=== PATIENT | male | born 2000 | race Caucasian/White ===

== ENCOUNTER 2019-04-01 22:09 | Emergency (ER) | payer SELFPAY ==
--- NOTE | 2019-04-01 22:38 | ED ---
Upper Extremity Pain - HPI Summary HPI Summary: This pt is a 18 Y/O M presenting to [facility] with a CC of L shoulder pain that occurred at 2100 this date. The pt states that he was lifting when he felt the shoulder give out and drop. He states that he was seen by the consulting technical manager who was unable to relocate the shoulder. He states that he has some tingling and numbness in his L hands. He states that the shoulder is rated a 3 or 4 out of 10. He states that movement and palpation increase the pain. He denies any fever, headaches, SOB, and N/V. He states that he has no alleviating factors. He has no pertinent PMHx and states that he does not have a SHx of drinking, tobacco use, or use of any drugs. - History of Current Complaint Chief Complaint: EDShoulderCBrandon Stated Complaint: ARM PAIN PER EMS Time Seen by Provider: 04/01/19 22:24 Hx Obtained From: Patient Mechanism Of Injury: Other - states he was lifting when the shoulder "popped and dropped." Onset/Duration: Started Hours Ago - 2, Still Present Timing: Constant Severity Initially: Moderate Severity Currently: Mild - 3 Pain Location: Shoulder - L shoulder Aggravating Factor(s): Movement, Other - palpation Alleviating Factor(s): Nothing Associated Signs & Symptoms: Positive: Negative - headache, Numbness/Tingling - L finger. Negative: Fever, SOB, Nausea, Vomiting - Allergies/Home Medications Allergies/Adverse Reactions: Allergies Allergy/AdvReac Type Severity Reaction Status Date / Time No Known Allergies Allergy Verified 04/01/19 23:04 Home Medications: Home Medications NK [No Home Medications Reported] 04/01/19 [History Confirmed 04/01/19] PMH/Surg Hx/FS Hx/Imm Hx Previously Healthy: Yes Endocrine/Hematology History: Denies: Hx Diabetes Cardiovascular History: Denies: Hx Hypotension Respiratory History: Denies: Hx Asthma Sensory History: Reports: Hx Contacts or Glasses - perscription glasses, no contacts Opthamlomology History: Reports: Hx Contacts or Glasses - perscription glasses, no contacts - Cancer History Hx Chemotherapy: No Hx Radiation Therapy: No - Surgical History Surgical History: Yes Surgery Procedure, Year, and Place: Stye removed on L eyelid - Immunization History Immunizations Up to Date: Yes Infectious Disease History: Denies: Traveled Outside the [place] in Last 30 Days - Family History Known Family History: Negative: Cardiac Disease, Diabetes - Social History Occupation: Student - [employer] Lives: Dormitory/Roommates Alcohol Use: None Hx Substance Use: No Substance Use Type: Reports: None Hx Tobacco Use: No Smoking Status (MU): Never Smoked Tobacco Review of Systems Negative: Fever Negative: Shortness Of Breath Negative: Vomiting, Nausea Positive: Other - L arm pain Neurological: Other - tingling L fingers Positive: Weakness - L fingers All Other Systems Reviewed And Are Negative: Yes Physical Exam - Summary Physical Exam Summary: Appearance: Well-appearing, Well-nourished, lying in bed comfortably Skin: Warm, dry, no obvious rash Eyes: sclera anicteric, no conjunctival pallor ENT: mucous membranes moist, pharynx appears normal Neck: Supple, nontender Respiratory: Clear to auscultation, no signs of respiratory distress Cardiovascular: Normal S1, S2. No murmurs. Normal distal pulses in tibial and radial bilaterally. Abdomen: Soft, nontender, normal active bowel sounds present Musculoskeletal: Strength/ROM Intact, L shoulder has a deformity consistent with anterior dislocation of the shoulder. No vascular changes of the L upper extremities. Neurological: A&Ox3, awake and alert, mentation is normal, speech is fluent and appropriate Psychiatric: affect is normal, does not appear anxious or depressed Triage Information Reviewed: Yes Vital Signs On Initial Exam: Temp Pulse Resp BP SpO2 FiO2 Vital Signs Reviewed: Yes Procedures - Sedation Patient Received Moderate/Deep Sedation with Procedure: Yes - Propofal Are You The Provider Who Administered The Sedation: Yes Name of Provider Whom Sedated Patient: Juan FReginaldo - Procedural Sedation/Analgesia Sedation Course: Emergency Airway Equipment Available, Informed Consent Obtained - 2334, Time Out Completed - 2341, End-tidal Capnography Utilized Adverse Reactions Experienced by Patient: None Mallampati Classification: Class I ASA Classification: Class I: Normal/Healthy Pre-Procedural Heart: S1 and S2 Pre-Procedural Lungs: Clear Auscultation Comment/Plan of Care: Cleared for procedural sedation Provider Procedure Attestation: With My Signature Below, I Attest to have Personally Reviewed and Agree with the Pre-Sedation History and Pre-Service Assessment Update Cleared for Moderate Sedation: Yes Pre-Procedural Diagnosis: left shoulder dislocation Post-Procedural Diagnosis: same Procedure: reduction left shoulder dislocation Estimated Blood Loss: None Specimen(s): None Findings: None Implants/Tubes/Drains Placed: None - Joint Reduction Left Joint Reduction Site: shoulder (L) Conscious Sedation: Yes - Propofol 100 mg IV push Pre-Procedure NV Exam: Yes - no NV issues Diagnostics - Laboratory Lab Statement: Any lab studies that have been ordered have been reviewed, and results considered in the medical decision making process. - Radiology Shoulder X-Ray Radiology Interpretation Completed By: ED Physician Summary of Radiographic Findings: Aneterior dislocation of the shoulder. No Fracture. Pending offical review. Post-Reduction Shoulder X-Ray Radiology Interpretation Completed By: ED Physician Summary of Radiographic Findings: Successful reduction. Pending offical review. Course/Dx - Course Course Of Treatment: This pt is a 18 Y/O M presenting to [facility] with a CC of a shoulder dislocation that occurred at 2100 this date. The pt states that he was lifting when he felt the shoulder give out and drop. He states that he was seen by the consulting technical manager who was unable to relocate the shoulder. He states that he has some tingling and numbness in his L hands. He states that the shoulder is rated a 3 or 4 out of 10. His PE found L shoulder has a deformity consistent with anterior dislocation of the shoulder. No vascular changes of the L upper extremities. His Shoulder X-Ray shows: L shoulder anterior dislocation without fracture. Pt received 100 mgs Propofol prior to the relocation of his L shoulder. The pt had emergency breathing devices and was hooked up to a heart monitor during the event. His shoulder was manipulated and a post X-ray was ordered to confirm placement. He will be discharged home with a Dx of a L anterior shoulder dislocation. His post-reduction X-Ray shows a successful reduction. The pt will be discharged home with a Dx of a L anterior shoulder dislocation. - Diagnoses Provider Diagnoses: Dislocation of shoulder, anterior, left, closed Discharge ED - Sign-Out/Discharge Documenting (check all that apply): Patient Departure - discharge - Discharge Plan Condition: Improved Disposition: HOME Patient Education Materials: Shoulder Dislocation Exercises (GEN), Elbow Dislocation (ED), Moderate Sedation (ED) Referrals: [facility] @ [Outside] - 1 Week Additional Instructions: While the muscles in your shoulder heal, you are at risk for re-dislocation, so be very careful putting any stress on your shoulder, especially reaching up or out. I have seen people redislocate just trying to reach an item on a high shelf. - Billing Disposition and Condition Condition: IMPROVED Disposition: Home - Attestation Statements Document Initiated by Lali: Yes Documenting Scribe: Anmol Hahn Provider For Whom Lali is Documenting (Include Credential): Reginaldo Rogel MD Scribe Attestation: I, Anmol Hahn, scribed for Reginaldo Rogel MD on 04/02/19 at 1853. Scribe Documentation Reviewed: Yes Provider Attestation: The documentation as recorded by the Anmol curiel accurately reflects the service I personally performed and the decisions made by me, Reginaldo Rogel MD Status of Scribe Document: Viewed
[2019-04-01] MEDS ORDERED: Propofol* 10 MG/ML 20 ML BTL IV PUSH ONE (22:39)
[2019-04-02 01:27] VITALS: BP 140/90
== END 2019-04-02 01:13 | disposition home or self-care (01) ==
LOC: ED 22:09
DX: S43.015A Anterior dislocation of left humerus, initial encounter (principal); X50.3XXA Overexertion from repetitive movements, initial encounter; Y93.B3 Activity, free weights; Y92.9 Unspecified place or not applicable
CPT/HCPCS: 23650; 99156; 99285; J2704